=== PATIENT | female | born 1965 | race Caucasian/White ===

== ENCOUNTER 2019-06-04 13:08 | Outpatient (CLI) | payer BC, SELFPAY ==
--- NOTE | ~2019-06-04 | XR_ITS ---
XR lumbar spine 2-3V 06/04/2019 13:29 Indication: Low back pain. Left SI joint pain. Procedure: 3 views lumbar spine Comparison: 01/13/2011 Findings: Vertebral body heights are maintained. No fracture, subluxation or dislocation. No evidence for spondylolysis or spondylolisthesis. No significant disc narrowing. Sacroiliac joints are symmetr ic. Pedicles intact. Impression: 1: No significant abnormality of the lumbar spine. Reviewed, dictated and finalized at location A. Impression: 1: No significant abnormality of the lumbar spine.
== END 2019-06-04 13:09 | disposition home or self-care (01) ==
PROVIDERS: PCP Family Medicine Adolescent Medicine; Visit Provider Family Medicine Adolescent Medicine
DX: M54.5 Low back pain (principal)
CPT/HCPCS: 72100

== ENCOUNTER 2019-07-16 15:35 | Outpatient (CLI) | payer BC, SELFPAY ==
--- NOTE | ~2019-07-16 | MR_ITS ---
EXAMINATION: MR lumbar spine wo con DATE: 07/16/2019 16:27 INDICATION: Left-sided low back pain. TECHNIQUE: Magnetic resonance imaging (MRI) of the lumbar spine was performed without intravenous con trast. Sequences included sagittal T2-weighted FSE, sagittal T2-weighted FS FSE, sagittal T1-weighted FSE, and axial T2-weighted FSE. COMPARISON: Lumbar spine radiographs 06/04/2019 FINDINGS: Bone alignment is normal. Vertebral body heights are normal. There is mildly decreased disc height at T11-T12. The distal spinal cord signal intensity is normal. The conus medullaris is at L1- L2. The following disc levels are specifically discussed: L1-L2: The disc does not extend beyond the endplate margin. There is mild bilateral facet joint osteo arthritis. There is no neural foraminal stenosis. There is no central canal stenosis. L2-L3: The disc does not extend beyond the endplate margin. There is moderate right and mild left fac et joint osteoarthritis. There is no neural foraminal stenosis. There is no central canal stenosis. L3-L4: The disc is bulging. There is severe bilateral facet joint osteoarthritis. There is mild bilat eral neural foraminal stenosis. There is mild central canal stenosis. L4-L5: The disc is bulging and has an annular fissure. There is moderate right and mild left facet margie int osteoarthritis. There is mild bilateral neural foraminal stenosis. There is mild central canal st enosis. L5-S1: The disc is mildly bulging. There is mild bilateral facet joint osteoarthritis. There is mild bilateral neural foraminal stenosis. There is no central canal stenosis. IMPRESSION: 1. Mild lumbar spondylosis. Reviewed, dictated and finalized at location A. IMPRESSION: 1. Mild lumbar spondylosis.
== END 2019-07-16 15:36 | disposition home or self-care (01) ==
PROVIDERS: PCP Family Medicine Adolescent Medicine; Visit Provider Family Medicine Adolescent Medicine
DX: M47.896 Other spondylosis, lumbar region (principal)
CPT/HCPCS: 72148

== ENCOUNTER 2019-10-28 09:03 | Outpatient (CLI) | payer BC, SELFPAY ==
--- NOTE | ~2019-10-28 | MM_ITS ---
EXAMINATION: MM scrn vivian implant BI w yanet HISTORY: Screening mammogram TECHNIQUE: Craniocaudal and mediolateral oblique 3-D tomosynthesis images with implant displacement a nd synthetic 2-D images were generated. Craniocaudal and mediolateral oblique views of the breasts wi thout implant displacement were obtained using full field digital mammography. CAD analysis was submi tted and interpreted. COMPARISON: 09/14/2018 bilateral digital screening mammogram 05/07/2017 diagnostic left digital mammogram and limited left breast ultrasound 04/27/2017, 07/13/2015 bilateral implant digital screening mammogram examinations BREAST PARENCHYMAL COMPOSITION: There are scattered areas of fibroglandular density. FINDINGS: Status post bilateral augmentation mammoplasty. There is no evidence of suspicious mass, ca lcification, or architectural distortion to suggest malignancy in either breast. There has been no eldridge spicious interval change. IMPRESSION: 1. No mammographic evidence of malignancy. 2. Recommend routine screening mammography in one year. BI-RADS Category 1: Negative Reviewed, dictated and finalized at location A.
== END 2019-10-28 09:04 | disposition home or self-care (01) ==
LOC: ANHIMG 09:10
PROVIDERS: PCP Family Medicine Adolescent Medicine
DX: Z12.31 Encounter for screening mammogram for malignant neoplasm of breast (principal)
CPT/HCPCS: 77063; 77067

== ENCOUNTER 2020-12-15 16:40 | Outpatient (CLI) | payer BC, SELFPAY ==
--- NOTE | ~2020-12-15 | MM_ITS ---
EXAMINATION: MM scrn vivian implant BI w yanet HISTORY: Screening mammogram TECHNIQUE: Craniocaudal and mediolateral oblique 3-D tomosynthesis images with implant displacement a nd synthetic 2-D images were generated. Craniocaudal and mediolateral oblique views of the breasts wi thout implant displacement were obtained using full field digital mammography. CAD analysis was submi tted and interpreted. COMPARISON: 10/28/2019, 09/14/2018 bilateral implant screening mammogram examinations BREAST PARENCHYMAL COMPOSITION: The breasts are heterogeneously dense, which may obscure small masses . FINDINGS: Status post bilateral augmentation mammoplasty. There is no evidence of suspicious mass, ca lcification, or architectural distortion to suggest malignancy in either breast. There has been no eldridge spicious interval change. IMPRESSION: 1. No mammographic evidence of malignancy. 2. Recommend routine screening mammography in one year. BI-RADS Category 1: Negative Reviewed, dictated and finalized at location A. KEEPER
== END 2020-12-15 16:41 | disposition home or self-care (01) ==
LOC: ANHIMG 16:41
PROVIDERS: PCP Family Medicine Adolescent Medicine
DX: Z12.31 Encounter for screening mammogram for malignant neoplasm of breast (principal)
CPT/HCPCS: 77063; 77067

== ENCOUNTER 2022-04-25 08:28 | Outpatient (CLI) | payer BC, SELFPAY ==
--- NOTE | ~2022-04-25 | MM_ITS ---
EXAMINATION: MM scrn vivian implant BI w yanet HISTORY: Screening mammogram TECHNIQUE: Craniocaudal and mediolateral oblique 3-D tomosynthesis images with implant displacement a nd synthetic 2-D images were generated. Craniocaudal and mediolateral oblique views of the breasts wi thout implant displacement were obtained using full field digital mammography. CAD analysis was submi tted and interpreted. COMPARISON: Comparison to multiple prior studies sequentially, with oldest reviewed study dated 08/2015. BREAST PARENCHYMAL COMPOSITION: There are scattered areas of fibroglandular density. FINDINGS: There is no evidence of suspicious mass, calcification, or architectural distortion to sugg est malignancy in either breast. There has been no suspicious interval change. IMPRESSION: 1. No mammographic evidence of malignancy. 2. Recommend routine screening mammography in one year. BI-RADS Category 1: Negative Reviewed, dictated and finalized at location A.
== END 2022-04-25 08:29 | disposition home or self-care (01) ==
LOC: ANHIMG 08:31
PROVIDERS: PCP Family Medicine Adolescent Medicine
DX: Z12.31 Encounter for screening mammogram for malignant neoplasm of breast (principal)
CPT/HCPCS: 77063; 77067

== ENCOUNTER 2023-03-01 13:37 | Outpatient (CLI) | payer BC, SELFPAY ==
--- NOTE | ~2023-03-01 | MR_ITS ---
EXAMINATION: MR hip RT w con DATE: 03/01/2023 15:39 INDICATION: Right hip pain TECHNIQUE: Magnetic resonance (MR) arthrogram of the right hip was performed following intra-articula r gadolinium contrast injection and without intravenous contrast. Details of the hip joint injection have been dictated separately. Sequences included small field of view of the right hip with axial and sagittal T1-weighted FS SE and T2-weighted FS FSE and coronal T1-weighted SE and T2-weighted FS FSE . Additional T1-weighted FGRE images in a radial pattern oriented orthogonal to the acetabular rim we re obtained for evaluation of the labrum. COMPARISON: None. FINDINGS: Bones/labrum/cartilage: Alignment is normal. No fracture, avascular necrosis or pathologic marrow replacing process. Diffuse degenerative tearing of the right acetabular labrum most severe anterosuperiorly where the labrum ap pears thickened and frayed with prominent intrasubstance imbibition of contrast. There is a shallow c left at the chondral labral interface at the 12:00 position of the superolateral right acetabular lab rum. There are few tiny para labral cysts along the periphery of the base of the posterior labrum. Mo derate osteoarthritis at the right hip with deep chondral ulceration along the anterosuperior right a cetabulum with underlying subarticular edema-like and cystlike changes. There is less severe partial thickness cartilage loss with some chondral surface regularity along the femoral head and along the r im of the more posterior acetabulum. On the larger [id number] images there appears to be similar l abral degeneration with thickening and increased signal of the anterosuperior to superolateral left a cetabular labrum. There is also similar osteoarthritis at the left hip with subarticular cystic rahman es at the anterosuperior left acetabulum. Fluid: Physiologic amount fluid in the left hip joint. No bursitis or other abnormal fluid collections. Soft tissues: Normal and symmetric muscle bulk and signal in the pelvis and visualized proximal thighs. The bilater al iliopsoas, gluteal and proximal hamstring tendons are normal. The uterus is not identified and has likely been surgically resected. Limited evaluation of visceral organs of the pelvis is otherwise unremarkable. No pathologically enlarged pelvic/inguinal lymphadenopathy. IMPRESSION: 1. Moderate osteoarthritis at the right hip with diffuse labral degeneration and high-grade chondroma lacia is a reticular cystlike changes at the anterosuperior acetabulum. Similar findings suggests on the larger field of view images at the contralateral left hip. Reviewed, dictated and finalized at location A. P MACHINE OPERATOR AUTOMATIC IMPRESSION: 1. Moderate osteoarthritis at the right hip with diffuse labral degeneration an d high-grade chondromalacia is a reticular cystlike changes at the anterosuperi or acetabulum. Similar findings suggests on the larger field of view images at the contralateral left hip.
--- NOTE | ~2023-03-01 | XR_ITS ---
EXAMINATION: XR fl inj hip RT for MR/CT DATE: 03/01/2023 14:41 INDICATION: Right hip pain TECHNIQUE: A time-out was performed to verify the patient's name, date of , and procedure to b e performed. The procedure including the risks, benefits, and alternatives was discussed with the pat ient. Risks discussed included bleeding and infection. The patient understood the risks and agreed to proceed. The skin overlying the right hip joint was prepped and draped in usual sterile fashion. A nesthetic was administered with 1% lidocaine subcutaneously. A 22 G needle was advanced under fluoro scopic guidance into the joint. Injection of 1 mL of Omnipaque 240 confirmed intra-articular positio n of the needle. Subsequently, injectate consisting of 12 mL of 2:1:1 mixture of sterile saline:Omni paque 240:1% lidocaine mixed 200:1 with 529 mg/mL Multihance gadolinium contrast was was injected wit h intra-articular administration confirmed with intermittent fluoroscopy. The needle was removed and the entry site was cleaned and dressed. There were no immediate complications. Fluoroscopy exposure time was 0.2 minutes. The total number of images was 8. Total DAP was 0.98 Gycm^2 FINDINGS: Real-time fluoroscopy demonstrates the needle in the right hip joint. IMPRESSION: 1. Successful right hip joint injection of a dilute gadolinium contrast mixture for subsequent MRI ar throgram which will be dictated separately. Reviewed, dictated and finalized at location A. AND PRINT ASSOCIATE IMPRESSION: 1. Successful right hip joint injection of a dilute gadolinium contrast mixture for subsequent MRI arthrogram which will be dictated separately.
== END 2023-03-01 13:38 | disposition home or self-care (01) ==
PROVIDERS: PCP Family Medicine Adolescent Medicine; Visit Provider Physician Assistant Surgical
DX: M16.11 Unilateral primary osteoarthritis, right hip (principal)
CPT/HCPCS: 20610; 73722; 77002; A9577; Q9966

== ENCOUNTER 2023-03-26 00:57 | Day surgery (SDC) | payer BC, SELFPAY ==
[2023-03-20 13:25] VITALS: BMI 28.3
--- NOTE | 2023-03-20 13:33 | PC.NURSE ---
Report to the Outpatient Waiting Room, entrance under the green pavilion located off [facility], at time _0600_ on date _[id number]_. Planned Procedure Time: _0730_. Time changes happen often and if your time is changed the preop area will call you the afternoon before. - You and your visitor will be asked to self-screen and do not enter if you have any COVID symptoms. - A mask is optional within the hospital at this time. Patients may have clear liquids (water, carbonated beverages, clear teas, apple juice) until 3 hours prior to surgery with a maximum of 20 ounces. - No food from midnight until time of surgery Take the following medications with a SIP of water the morning of surgery: ___None DO NOT STOP ANY OF YOUR OTHER PRESCRIPTION MEDICATIONS PRIOR TO SURGERY ?EXCEPT THE FOLLOWING Medications to discontinue per physician Vitamins and supplements Date to take last [id number] Please no make-up, nail kyrgyz, hairspray, perfume, deodorant, or body powder the day of surgery. No jewelry (including any body piercings) or valuables the day of surgery, leave them at home. Please take a shower or bath the night before, or the morning of, surgery with an antibacterial soap. Wear comfortable, loose fitting clothing. - Jewelry must be removed prior to entering the operating room. Rings and piercings that are not removed may be cut off. - The hospital will not accept responsibility for valuables. - Please leave all valuables, including medications, at home the day of surgery. If you are going home after surgery, a licensed driver/refuse collector must drive you home. - NO public transportation without another adult if you receive anesthesia. - We recommend that an adult stay with you for 24 hours following discharge. - We also recommend that you do not drive, make important decision, drink alcoholic beverages, or take any drugs that were not prescribed by your health care provider for at least 24 hours after your discharge time. Follow any additional instructions given to you from your surgeon. If you or anyone in your household have experienced Covid symptoms in the past week, please notify your surgeon or the nurse liaison at the phone number below for possible testing. Telephone instructions given to __Reshma___and asked if any additional questions and then verbalized understanding. Patient advised to call surgeon office or pre surgery nurse liaison [phone] if any additional questions.
--- NOTE | 2023-03-23 12:11 | PM.IMHP ---
H&P: HPI History of Present Illness Date/Time: 03/23/23 12:11 Chief Complaint: right carpal tunnel syndrome Narrative: 57-year-old female who presents today for a right carpal tunnel release. Patient has been having symptoms on and off for about 7 years. She had a nerve conduction velocity done 7 years ago which showed definite evidence of carpal tunnel syndrome in the right hand. She at that time was having nocturnal symptoms that started using splints and did have some improvement of her symptoms. However more recently she has been waking at night with the hand asleep. She tried using the splints again but they did not help with her symptoms. She is putting getting numbness during the day as well. It predominantly affects the central 3 fingers of the hand. patient feels this point she would like to proceed with surgery then continue nonsurgical treatment. Review of Systems Review of Systems: All systems reviewed & are unremarkable except as noted in HPI and below PMFSH Social History Social History Years smoked: 20 Smoking status: Former smoker Smoking end date: 03/20/21 Alcohol intake: current Drinks per week: 6 Living arrangements: with family Spiritual care concerns: No Meds Home Medications and Allergies Home Medications Medication Instructions Recorded Confirmed Type magnesium 250 mg tablet 250 mg PO DAILY 03/20/23 03/20/23 History multivitamin 1 tablet PO DAILY 03/20/23 03/20/23 History Allergies Allergy/AdvReac Type Severity Reaction Status Date / Time No Known Allergies Allergy NONE Unverified 03/20/23 13:24 Exam Narrative: 57-year-old female alert pleasant. She is 5 ft 4 and 169 lb. Sat is very positive Tinel's over the median nerve causing tingling in the index and long finger. She has normal light touch sensation to the hand. Two-point discrimination is 5 mm in all fingers. She has a negative Tinel's over the ulnar nerve. 2+ radial pulse. Full range of motion of the wrist and fingers. Resp: Auscultation: clear to auscultation bilaterally Cardio: Rate: regular rate Rhythm: regular rhythm Assessment and Plan Assessment and plan (1) Right carpal tunnel syndrome: Code(s): G56.01 - Carpal tunnel syndrome, right upper limb Status: Acute Plan 57-year-old female who has longstanding right carpal tunnel syndrome with worsening symptoms. She has not improved from nonsurgical treatment and at this point would like to proceed with carpal tunnel release surgery. Surgical procedure as well as risks and complications were discussed in detail and all questions were answered and we will proceed. Patient will avoid any aspirin ibuprofen products 1 week prior to surgery. The
[2023-03-26] VITALS (8 sets, daily range): BP systolic 85–131; BP diastolic 65–88; PULSE 49–63; RESP 12–18; TEMP 35.9–36.2; O2SAT 97–100
[2023-03-26] MEDS: ACETAMINOPHEN 500 MG TABLET 1000 MG PO (06:23)
[2023-03-26] MEDS: LACTATED RINGERS 1,000 ML 30 ML IV CONT (06:23)
[2023-03-26] MEDS: KETOROLAC 15 MG/ML VIAL (*BKC) IV PUSH (06:24)
--- NOTE | 2023-03-26 07:11 | P.PNAN_ITS ---
Anes - Initial Pre Proc Eval Procedure: Operation Date: 03/26/23 07:30 Proposed Procedures p Right Carpal Tunnel Release - Kenny Han MD Date/Time: 03/26/23 07:11 Surgeon: Kenny Han MD Pre Op Diagnosis: Right Carpal Tunnel Synd Patient Data Age: 57 Gender: F Height: 1.63 m Weight: 76.45 kg Last Vital Signs Temp 35.9 C L 03/26/23 06:11 Pulse 63 03/26/23 06:11 Resp 18 03/26/23 06:11 BP 120/87 03/26/23 06:11 Pulse Ox 97 03/26/23 06:11 O2 Del Method Room Air 03/26/23 06:11 Allergies Allergy/AdvReac Type Severity Reaction Status Date / Time No Known Allergies Allergy NONE Unverified 03/26/23 06:18 Home Medications Medication Instructions Recorded Confirmed Type magnesium 250 mg tablet 250 mg PO DAILY 03/20/23 03/26/23 History multivitamin 1 tablet PO DAILY 03/20/23 03/26/23 History Patient hx anesthesia problems: none Family hx anesthesia problems: none Results Review: All pre-operative results and documents have been reviewed as part of the pre- operative evaluation. [facility] Social History Social History Years smoked: 20 Smoking status: Former smoker Smoking end date: 03/20/21 Alcohol intake: current Drinks per week: 6 Living arrangements: with family Spiritual care concerns: No Anes - Eval Final PreProcedure Day of Procedure 03/26/23 07:11 Patient weight: overweight Heart: regular rate and rhythm Lungs: clear to auscultation Airway: Mallampati scale class II Neurological: alert and oriented Last oral intake: >/= 8 hours ASA classification: II Emergent: no Anesthetic plan: proceed Anesthesia type and monitoring: general GIVS and LMA and standard monitoring Results Review: All pre-operative results and documents have been reviewed as part of the pre- operative evaluation. Informed Consent: The patient's anesthetic plan and its attendant risks and benefits were discussed with the patient/family/POA. Questions were solicited and answers provided to the satisfaction of the patient/family/POA.
--- NOTE | 2023-03-26 07:16 | WPDHPUPDATE1 ---
History and Physical Update Update Date/Time: 03/26/23 07:16 History and Physical has been reviewed, including an updated exam of the patient. There are NO changes in the patient's condition. Risks, benefits, and alternatives have been discussed and questions answered. Patient agrees to proceed with procedure.
[2023-03-26] MEDS: ceFAZolin 2 GM/D5W 50 ML 2 GM/50 ML BAG IVPB (07:31)
[2023-03-26] MEDS: LIDO 1%/EPINEPHRINE 1:100,000 20 ML VIAL 5 ML INFILTRATE (07:56)
--- NOTE | 2023-03-26 08:37 | P.OP_ITS ---
Procedure Note - Detailed Date of Procedure 03/26/23 Pre-op Diagnosis Right Carpal Tunnel Synd Post-op Diagnosis Same Procedure Performed Right carpal tunnel release Surgeon Kenny Han MD Anesthesia General Description of Procedure Patient was brought to the operating room and general anesthesia was admini stered with LMA. She received 2 g of Ancef preoperatively the right arm was prepped draped usual fashion. Local anesthesia was administered with 1% lidocaine with epinephrine 3 cc. Limb was exsanguinated tourniquet elevated to 200 mmHg. A 1 in longitudinal incision was made at the base of the palm in rate with the radial border the 4th ray. Dissection was carried down through the superficial palmar fascia to the transverse carpal ligament which was longitudinally incised. Complete release was achieved distally. Proximally a subcutaneous fat was elevated off the distal volar forearm fascia and a Prescott elevator passed underneath the fascia from the underlying nerve. The fascia was then split for a distance of 3 cm proximal to the flexor crease of the wrist completing the decompression. The nerve was inspected and appeared unremarkable no masses in the canal. Tourniquet was released. Hemostasis was achieved wound irrigated closed with 5 0 nylon suture and a soft bulky dressing applied.
== END 2023-03-26 09:45 | disposition home or self-care (01) ==
PROVIDERS: PCP Family Medicine; Visit Provider Orthopaedic Surgery
PROC: (CPT 64721; principal; 2023-03-26 07:30)
DX: G56.01 Carpal tunnel syndrome, right upper limb (principal); Z87.891 Personal history of nicotine dependence
CPT/HCPCS: 64721; A9270; J0690; J1100; J1885; J2250; J2405; J3010; J7120

== ENCOUNTER 2023-11-27 17:50 | Emergency (ER) | payer BC, SELFPAY ==
--- NOTE | ~2023-11-27 | XR_ITS ---
EXAMINATION: XR knee RT min 4V DATE: 11/27/2023 19:48 INDICATION: Right knee pain TECHNIQUE: Anteroposterior, 2 oblique and crosstable lateral views of the right knee were obtained COMPARISON: None. FINDINGS: Alignment is normal. No fracture. Joint spaces appear normal on nonweightbearing imaging with no ost eophytosis. No joint effusion. Soft tissues are unremarkable. IMPRESSION: 1. Negative right knee radiographs. Reviewed, dictated and finalized at location A.
--- NOTE | ~2023-11-27 | US_ITS ---
EXAMINATION: US venous doppler LE RT DATE: 11/27/2023 18:20 INDICATION: Right hip pain TECHNIQUE: Grayscale ultrasound images without and with compression and Doppler ultrasound images of the right lower extremity veins were obtained. COMPARISON: None. FINDINGS: The visualized portions of right common femoral vein, profunda (deep) femoral vein, femoral vein, pop liteal vein, peroneal trunk, posterior tibial veins, peroneal veins, gastrocnemius vein and greater s aphenous vein outflow are patent. IMPRESSION: 1. No deep venous thrombosis in the right lower limb. Reviewed, dictated and finalized at location A.
[2023-11-27 17:53] VITALS: BP 140/88; PULSE 71; RESP 18; TEMP 36.6; O2SAT 98
--- NOTE | 2023-11-27 19:34 | ED.EXTPRO ---
HPI - Extremity Problem General Chief complaint: Extremity Problem,Nontraumatic Stated complaint: r/o dvt Time Seen by Provider: 11/27/23 18:57 Source: patient Mode of arrival: ambulatory Limitations: no limitations History of Present Illness HPI Narrative: Patient is a 58-year-old female who presents the ED with report of right leg pain. Patient reports having pain throughout her right lateral knee, radiating up and down her leg since Sunday. She notes she went camping over the weekend and tripped over a tree root and stumbled, but denied feeling as though she injured herself. Has pain mostly with movement. Has been taking ibuprofen without much relief. Denies significant swelling throughout the leg. Was concerned for DVT and presented here for further evaluation. No numbness. No other injuries. Denies chest pain or shortness of breath. Related Data Home Medications Medication Instructions Recorded Confirmed magnesium 250 mg tablet 250 mg PO DAILY 03/20/23 03/26/23 multivitamin 1 tablet PO DAILY 03/20/23 03/26/23 Allergies Allergy/AdvReac Type Severity Reaction Status Date / Time No Known Allergies Allergy NONE Unverified 03/26/23 06:18 Review of Systems Review of Systems: All systems reviewed & are unremarkable except as noted in HPI. All systems reviewed & are unremarkable except as noted in HPI and below PMFSH Social History Social History Years smoked: 20 Smoking status: Former smoker Smoking end date: 03/20/21 Alcohol intake: current Drinks per week: 6 Living arrangements: with family Spiritual care concerns: No Exam Narrative: GENERAL: Well appearing, well-nourished, non-toxic, in no acute distress. HEAD: Normocephalic, atraumatic. RESPIRATORY: Airway patent, respirations nonlabored. CARDIOVASCULAR: Regular rate and rhythm. Pedal pulses intact and easily palpable. MUSCULOSKELETAL: Moves all extremities. No gross deformities. No significant tenderness throughout knee joint, calf, thigh. No peripheral edema. Sensation intact. SKIN: Warm, dry, normal color. NEURO: A&O X3. Speech clear. Cranial nerves II-XII grossly intact. No ataxic movements. PSYCHIATRIC: Appropriate mood and affect. Normal interaction. Course Vital Signs Vital signs: Vital Signs Temperature 97.8 F 11/27/23 17:53 Pulse Rate 71 11/27/23 17:53 Respiratory Rate 18 11/27/23 17:53 Blood Pressure 140/88 11/27/23 17:53 Pulse Oximetry 98 11/27/23 17:53 Temperature 97.8 F 11/27/23 17:53 Pulse Rate 71 11/27/23 17:53 Respiratory Rate 18 11/27/23 17:53 Blood Pressure 140/88 11/27/23 17:53 Pulse Oximetry 98 11/27/23 17:53 MDM - Extremity (Nontraumatic) MDM Narrative Medical decision making narrative: Patient?s injury is consistent with musculoskeletal etiology. No signs of neurologic or vascular compromise on physical examination. Compartments are soft without signs of compartment syndrome. Venous Doppler ultrasound of right lower extremity negative for DVT. XR of knee negative. No effusion. Pain likely r/t knee strain. Patient is felt to be stable for discharge home and further outpatient management and treatment. Given ISIS bandage. Discussed RICE therapy, reasons to return. She has an appointment with orthopedics next week. D/C in stable condition. Medical Records Attestation: I reviewed the patient's medical records. Imaging Data Attestation: I personally reviewed and interpreted this imaging study as follows: Radiologist's impression: ITS Impressions Venous Doppler Study 11/27/23 18:24 IMPRESSION: 1. No deep venous thrombosis in the right lower limb. Knee X-Ray 11/27/23 20:03 IMPRESSION: 1. Negative right knee radiographs. Discharge Plan Discharge Clinical Impression: Pain in right lower leg Patient Disposition: Home, Self-Care Condition: Stable Instruction
== END 2023-11-27 20:52 | disposition home or self-care (01) ==
LOC: ANHED 20:51
PROVIDERS: Emergency Provider Physician Assistant; PCP Family Medicine
DX: M79.661 Pain in right lower leg (principal); Z87.891 Personal history of nicotine dependence
CPT/HCPCS: 73564; 93971; 99284